=== PATIENT | male | born 1970 | race Caucasian/White ===

== ENCOUNTER 2020-10-26 17:53 | Emergency (ER) | payer OTHER ==
[2020-10-26 18:04] VITALS: TEMP 97.4
[2020-10-26] MEDS ORDERED: SODIUM CHLORIDE 0.9% 500 ML 500 ML IV STA (18:52)
[2020-10-26 19:16] LABS: Basophils # (A) 0.1 k/uL (0-0.2); Basophils % (A) 1 %; Eosinophils # (A) 0.3 k/uL (0-0.7); Eosinophils % (A) 3 %; HCT 40.1 % (39.0-53.0); HGB 13.1 gm/dL (13.0-17.5); Lymphocytes # (A) 1.2 k/uL (1.0-4.8); Lymphocytes % (A) 15 %; MCH 33.4 pg (25.0-35.0); MCHC 32.8 g/dL (31.0-37.0); Macrocytosis Slight; Mean Platelet Volume 8.3; Monocytes # (A) 0.9 k/uL (0-1.0); Monocytes % (A) 11 %; Neutrophils # (A) 5.6 k/uL (1.3-7.7); Neutrophils % (A) 69 %; Platelet Count 204 k/uL (150-450); RBC 3.93 m/uL (4.30-5.90); RDW 13.5 % (11.5-15.5); WBC 8.1 k/uL (3.8-10.6)
[2020-10-26 19:21] LABS: ALT 103 U/L (4-49); AST 55 U/L (17-59); African American GFR (CKD) >90 (>60 ml/min/1.73 sqM); Albumin 4.8 g/dL (3.5-5.0); Alcohol <10 mg/dL; Alkaline Phosphatase 40 U/L (38-126); Anion Gap 10 mmol/L; Blood Urea Nitrogen 16 mg/dL (9-20); Calcium 10.2 mg/dL (8.4-10.2); Carbon Dioxide 30 mmol/L (22-30); Chloride 98 mmol/L (98-107); Glucose 103 mg/dL (74-99); Non-African American GFR(CKD) >90 (>60 ml/min/1.73 sqM); Potassium 4.4 mmol/L (3.5-5.1); Sodium 138 mmol/L (137-145); Total Bilirubin 0.4 mg/dL (0.2-1.3); Total Protein 7.7 g/dL (6.3-8.2)
[2020-10-26] MEDS ORDERED: PHENYTOIN SODIUM INJ 500 MG in SODIUM CHLORIDE 0.9% 100 ML IVPB STA (19:22)
[2020-10-26 19:35] LABS: Amphetamine Screen,Urine Not Detected (NotDetected); Barbiturate Screen,Urine Not Detected (NotDetected); Benzodiazepines Screen,Urine Detected (NotDetected); Cocaine Screen,Urine Not Detected (NotDetected); Methadone Screen, Urine Not Detected (NotDetected); Opiate Screen,Urine Not Detected (NotDetected); Oxycodone Screen, Urine Not Detected (NotDetected); Phencyclidine Screen,Urine Not Detected (NotDetected); Tricyclic Antidepressant,Urine Not Detected (NotDetected); Urn Cannabinoid Scrn Not Detected (NotDetected)
[2020-10-26 19:56] VITALS: BP 140/94
--- NOTE | 2020-10-26 19:58 | CT ---
EXAMINATION TYPE: CT brain wo con DATE OF EXAM: 10/26/2020 COMPARISON: None available. HISTORY: Seizurelike activity. CT DLP: 1100.4 mGycm Automated exposure control for dose reduction was used. FINDINGS: There is no acute intracranial hemorrhage, midline shift, mass effect or hydrocephalus. The white mat ter is grossly preserved. The basilar cisterns are within normal limits. The paranasal sinuses and mastoid air cells are adequately aerated. The calvarium is intact. IMPRESSION: NO ACUTE INTRACRANIAL ABNORMALITY.
--- NOTE | 2020-10-26 20:14 | ED ---
Seizure HPI - General Chief Complaint: Seizure Stated Complaint: Seizure Time Seen by Provider: 10/26/20 18:22 Source: patient, EMS Mode of arrival: EMS Limitations: no limitations - History of Present Illness Initial Comments: 50-year-old male patient presents to the emergency department today for evaluation after having a seizure. Patient is currently receiving treatment at [facility] for alcohol dependence. Patient states that he has been there since 08/22/2021. States this is his first day out of detox. Patient states that he has been through detox 4 times in the past and has had one seizure with each episode. Patient states he is supposed to be taking Dilantin but hasn't had doses and about 10 months. States they are working on getting him the medication from the pharmacy. He denies any fever or chills. Patient states that the staff told him he hit his head on the wall when the seizure first started. He denies any headache, blurred vision, double vision. Denies any nausea or vomiting. States he feels well. Staff reported the seizure lasted approximately 1-3 minutes of generalized tonic-clonic movements. Patient denies any recent rash, cough, shortness of breath, chest pain, abdominal pain, diarrhea, constipation, back pain, numbness, tingling, dizziness, weakness, hematuria, dysuria, urinary urgency, urinary frequency, or any other complaints. - Related Data Home Medications Medication Instructions Recorded Confirmed Acetaminophen Tab [Tylenol] 650 mg PO Q4H 10/26/20 10/26/20 Chlorpheniramine Maleate 4 mg PO Q4H PRN 10/26/20 10/26/20 [Chlor-Trimeton] Ibuprofen [Motrin] 600 mg PO Q6H PRN 10/26/20 10/26/20 Magnesium Oxide [Magox 400] 400 mg PO BID@0615,1630 10/26/20 10/26/20 Multivitamins, Thera [Multivitamin 1 tab PO DAILY@59910/26/20 10/26/20 (formulary)] Thiamine [Vitamin B-1] 100 mg PO DAILY@0600 10/26/20 10/26/20 Tigan 200mg 200 mg IM Q6H PRN 10/26/20 10/26/20 Tigan 300mg Suppository 300 mg RECTAL Q6H PRN 10/26/20 10/26/20 Trimethobenzamide HCl [Tigan] 300 mg PO Q6H PRN 10/26/20 10/26/20 Venlafaxine HCl [Effexor XR] 75 mg PO DAILY@0615 10/26/20 10/26/20 Zofran 2mg/Ml 4 mg IM Q6H PRN 10/26/20 10/26/20 ondansetron HCL [Zofran] 8 mg PO Q6H PRN 10/26/20 10/26/20 traZODone HCL 50 - 150 mg PO HS 10/26/20 10/26/20 Previous Rx's Medication Instructions Recorded Phenytoin Sodium Extended 100 mg PO TID #90 capsule 10/26/20 [Dilantin] Phenytoin Sodium Extended 100 mg PO TID #90 capsule 10/26/20 [Dilantin] Allergies Allergy/AdvReac Type Severity Reaction Status Date / Time shellfish derived [Shellfish] Allergy Swelling Verified 10/26/20 18:17 Review of Systems ROS Statement: Those systems with pertinent positive or pertinent negative responses have been documented in the HPI. ROS Other: All systems not noted in ROS Statement are negative. Past Medical History Additional Past Medical History / Comment(s): seizures from ETOH withdrawl History of Any Multi-Drug Resistant Organisms: None Reported Past Surgical History: No Surgical Hx Reported Past Psychological History: Anxiety, Depression Smoking Status: Current every day smoker Past Alcohol Use History: Abuse, Daily Past Drug Use History: None Reported General Exam Limitations: no limitations General appearance: alert, in no apparent distress, other Head exam: Present: atraumatic, normocephalic, normal inspection Eye exam: Present: normal appearance, PERRL, EOMI. Absent: scleral icterus, conjunctival injection, nystagmus, periorbital swelling ENT exam: Present: normal exam, normal oropharynx, mucous membranes moist Respiratory exam: Present: normal lung sounds bilaterally. Absent: respiratory distress, wheezes, rales, rhonchi, stridor Cardiovascular Exam: Present: regular rate, normal rhythm, normal heart sounds. Absent: systolic murmur, diastolic murmur, rubs, gallop, clicks GI/Abdominal exam: Present: soft, normal bowel sounds. Absent: distended, tenderness, guarding, rebound, rigid Neurological exam: Present: alert, oriented X3, CN II-XII intact Expanded Speech: Present: fluid speech Cranial nerves: EOM's Intact: Normal, Nystagmus: Normal Motor strength exam: RUE: 5, LUE: 5, RLE: 5, LLE: 5 Eye Response: (4) open spontaneously Motor Response: (6) obeys commands Verbal Response: (5) oriented Annabelle Total: 15 Psychiatric exam: Present: normal affect, normal mood Skin exam: Present: warm, dry, intact, normal color. Absent: rash Course Vital Signs 10/26/20 10/26/20 17:55 19:54 Temperature 97.4 F L Pulse Rate 101 H 93 Respiratory 16 18 Rate Blood Pressure 127/89 140/94 O2 Sat by Pulse 96 97 Oximetry Medical Decision Making - Medical Decision Making 50-year-old male patient presents to the emergency department today for evaluation after having a seizure. He is currently receiving treatment at [facility] for alcohol dependence. Physical examination is unremarkable. Neurologically intact with no focal deficits. Patient states he has had seizures during withdrawal in the past and generally just one seizure per episode. Labs reviewed and are unremarkable. CT brain is negative. He was given a loading dose of Dilantin here and will be given a prescription. He is instructed to follow-up with his primary care physician for recheck as soon as possible. Return parameters were discussed in detail. He verbalizes understanding and agrees with this plan. - Lab Data Result diagrams: 10/26/20 18:58 10/26/20 18:58 Lab Results 10/26/20 10/26/20 10/26/20 Range/Units 18:58 18:58 19:11 WBC 8.1 (3.8-10.6) k/uL RBC 3.93 L (4.30-5.90) m/uL Hgb 13.1 (13.0-17.5) gm/dL Hct 40.1 (39.0-53.0) % MCV 102.0 H (80.0-100.0) fL MCH 33.4 (25.0-35.0) pg MCHC 32.8 (31.0-37.0) g/dL RDW 13.5 (11.5-15.5) % Plt Count 204 (150-450) k/uL MPV 8.3 Neutrophils % 69 % Lymphocytes % 15 % Monocytes % 11 % Eosinophils % 3 % Basophils % 1 % Neutrophils # 5.6 (1.3-7.7) k/uL Lymphocytes # 1.2 (1.0-4.8) k/uL Monocytes # 0.9 (0-1.0) k/uL Eosinophils # 0.3 (0-0.7) k/uL Basophils # 0.1 (0-0.2) k/uL Macrocytosis Slight Sodium 138 (137-145) mmol/L Potassium 4.4 (3.5-5.1) mmol/L Chloride 98 (98-107) mmol/L Carbon Dioxide 30 (22-30) mmol/L Anion Gap 10 mmol/L BUN 16 (9-20) mg/dL Creatinine 0.70 (0.66-1.25) mg/dL Est GFR (CKD-EPI)AfAm >90 (>60 ml/min/1.73 sqM) Est GFR (CKD-EPI)NonAf >90 (>60 ml/min/1.73 sqM) Glucose 103 H (74-99) mg/dL Calcium 10.2 (8.4-10.2) mg/dL Total Bilirubin 0.4 (0.2-1.3) mg/dL AST 55 (17-59) U/L ALT 103 H (4-49) U/L Alkaline Phosphatase 40 (38-126) U/L Total Protein 7.7 (6.3-8.2) g/dL Albumin 4.8 (3.5-5.0) g/dL Urine Opiates Screen Not Detected (NotDetected) Ur Oxycodone Screen Not Detected (NotDetected) Urine Methadone Screen Not Detected (NotDetected) Ur Propoxyphene Screen Not Detected (NotDetected) Ur Barbiturates Screen Not Detected (NotDetected) U Tricyclic Antidepress Not Detected (NotDetected) Ur Phencyclidine Scrn Not Detected (NotDetected) Ur Amphetamines Screen Not Detected (NotDetected) U Methamphetamines Scrn Not Detected (NotDetected) U Benzodiazepines Scrn Detected H (NotDetected) Urine Cocaine Screen Not Detected (NotDetected) U Marijuana (THC) Screen Not Detected (NotDetected) Serum Alcohol <10 mg/dL - Radiology Data Radiology results: report reviewed, image reviewed CT brain without contrast is obtained. Report was reviewed in its entirety. Impression by Dr. Morales shows no acute intracranial abnormality. Disposition Clinical Impression: Alcohol withdrawal seizure Disposition: HOME SELF-CARE Condition: Good Instructions (If sedation given, give patient instructions): Recurrent Seizures in Adults (ED) Additional Instructions: Take Dilantin as directed. Follow-up with your primary care physician for recheck in 1-2 days. Return to the emergency department for any new, worsening, or concerning symptoms. Prescriptions: Phenytoin Sodium Extended [Dilantin] 100 mg PO TID #90 capsule Phenytoin Sodium Extended [Dilantin] 100 mg PO TID #90 capsule Is patient prescribed a controlled substance at d/c from ED?: No Referrals: Darshan White MD [Primary Care Provider] - 1-2 days Time of Disposition: 20:17
[2020-10-26 20:38] VITALS: PULSE 88; RESP 16
== END 2020-10-26 20:48 | disposition home or self-care (01) ==
LOC: EC 17:53
DX: F10.239 Alcohol dependence with withdrawal, unspecified (principal); R56.9 Unspecified convulsions; S09.90XA Unspecified injury of head, initial encounter; F41.9 Anxiety disorder, unspecified; F32.9 Major depressive disorder, single episode, unspecified; Z79.899 Other long term (current) drug therapy; F17.200 Nicotine dependence, unspecified, uncomplicated; Z91.013 Allergy to seafood; W22.01XA Walked into wall, initial encounter
CPT/HCPCS: 36415; 80053; 85025; 80306; 70450; 99285; 96365; 96361; G0480; J1165; 80320